=== PATIENT | female | born 1995 | race Caucasian/White ===

== ENCOUNTER 2024-03-24 08:16 | Emergency (ER) | payer MEDICAID, SELFPAY ==
[2024-03-24 09:30] VITALS: BP 164/78; PULSE 69; RESP 18; TEMP 36.7; O2SAT 100; BMI 22.6
[2024-03-24 09:34] VITALS: BMI 22.6
--- NOTE | 2024-03-24 09:34 | EXP.UTC ---
Discharge Plan Disposition Patient Disposition: Home, Self-Care Condition: Good Prescriptions Prescriptions: New prednisone 10 mg tablet 10 mg PO BID 4 Days Qty: 8 0RF amoxicillin 500 mg tablet 500 mg PO TID 10 Days Qty: 30 0RF [id number]-oedspfkci-KQ [Bromfed DM] 2-30-10 mg/5 mL Syrup 5 ml PO Q6H PRN (Reason: Cough) Qty: 240 0RF Referrals Follow up/Referrals: Provider,Referral, MD [Primary Care Provider] - See instructions Activity Restrictions/Add. Instructions Additional Instructions/Restrictions: Drink plenty of fluids. Take tylenol or ibuprofen for pain or fever. Take the medications as directed. Follow up with your regular doctor. GO TO THE ER FOR ANY WORSENING SYMPTOMS Clinical Impressions Clinical Impression: Strep throat Stand Alone Forms Stand Alone Forms: Work/School Release Instructions Patient Instructions: Strep Throat, DI for Strep Throat Print Language Print Language: Anguillan Discharge ED Provider: Orville Sprague [facility] HPI General Stated complaint: headache, swollen tonsils, sore throat Time Seen by Provider: 03/24/24 09:34 History of Present Illness Provider Complaint: She states that for the past 3 days she has had worsening sore throat. Related Data Previous Rx's ?Medication ?Instructions ?Recorded amoxicillin 500 mg tablet 500 mg PO TID 10 days #30 tabs 03/24/24 bilkqkxrvjmhjaq-xygbjpfluemzklo-AD 5 ml PO Q6H PRN Cough #240 mL 03/24/24 2 mg-30 mg-10 mg/5 mL oral syrup (Bromfed DM) prednisone 10 mg tablet 10 mg PO BID 4 days #8 tabs 03/24/24 Allergies Allergy/AdvReac Type Severity Reaction Status Date / Time No Known Allergies Allergy Verified 03/24/24 09:34 [facility] Disclaimer: The information contained in this section may have been updated after the patient was seen, as this information can be updated by other users. Social History Smoking Status: Never smoker alcohol intake: never current occupational status: employed Travel in the last 8 weeks: None ROS Obtained: Yes All systems reviewed & no additional complaints except as documented Constitutional Constitutional: Reports chills and Reports fever(s) Eyes Eyes: Denies eye discharge ENT Ears, Nose, Mouth, and Throat: Reports as per HPI Cardiovascular Cardiovascular: Denies chest pain Respiratory Respiratory: Denies chest congestion and Reports cough Gastrointestinal Gastrointestingal: Reports nausea; Denies abdominal pain, constipation, cramping, diarrhea or vomiting Musculoskeletal Musculoskeletal: Denies arthralgias Integumentary/Breasts Skin/Breast: Denies rash Neurologic Neurologic: Denies paresthesias Physical Exam General General appearance: alert and in no apparent distress Head Head exam: atraumatic, normocephalic and normal inspection Eye Eye exam: Present normal appearance, PERRL and EOMI ENT ENT exam: Present mucous membranes moist and normal external ear exam Expanded ENT Exam TM/Canal exam: Bilateral TM: erythema and bulging Nose exam: Absent sinus tenderness Mouth exam: Present normal external inspection; Absent drooling Teeth exam: Present normal inspection Throat exam: Present tonsillar erythema, tonsillomegaly and tonsillar exudate Neck Neck exam: Present normal inspection, full ROM and trachea midline; Absent tenderness, meningismus or lymphadenopathy Chest Chest inspection: Present normal inspection and symmetric chest wall rise; Absent tenderness Respiratory Respiratory exam: Present normal lung sounds bilaterally; Absent respiratory distress, wheezes, stridor or accessory muscle use Cardiovascular Cardiovascular exam: Present regular rate and normal rhythm; Absent systolic murmur or diastolic murmur Abdominal Exam Abdominal exam: Present soft and normal bowel sounds; Absent distention, tenderness, guarding, rebound or rigidity Extremities Exam Extremities exam: Present normal inspection and normal capillary refill; Absent calf tenderness Back Exam Back exam: Present normal inspection and full ROM; Absent tenderness, CVA tenderness (R) or CVA tenderness (L) Neurological Exam Neurological exam: Present alert, oriented X3 and CN II-XII intact Psychiatric Psychiatric exam: Present normal affect and normal mood Skin Skin exam: Present warm, dry, intact and normal color Medical Decision Making Medical Records Medical records reviewed: No I reviewed the patient's medical records. Chuck Inquiry Pt receiving controlled substance: No Lab Data Lab results reviewed: Yes I reviewed the patient's lab results.
[2024-03-24 10:04] LABS: Coronavirus 19, PCR Not Detected (NotDetected); Influenza A, PCR Not Detected (NotDetected); Influenza B, PCR Not Detected (NotDetected)
[2024-03-24 10:06] LABS: UTC Strep Screen (Rapid) Positive (Negative)
[2024-03-24 10:13] VITALS: BP 165/78; PULSE 69; RESP 20; TEMP 36.7; O2SAT 100
== END 2024-03-24 10:13 | disposition home or self-care (01) ==
PROVIDERS: Emergency Provider Nurse Practitioner Family
DX: J02.0 Streptococcal pharyngitis (principal); R51.9 Headache, unspecified
CPT/HCPCS: 87636; 87880; 99204; 99212; G0463

== ENCOUNTER 2024-05-17 14:45 | Emergency (ER) | payer MEDICAID, SELFPAY ==
[2024-05-17 14:47] VITALS: BP 134/87; PULSE 66; RESP 13; TEMP 36.6; O2SAT 100; BMI 23.6
--- NOTE | 2024-05-17 14:48 | ED_ITS ---
<Statement entered by Glenna Guerrero DO - 05/17/24 23:25> I was consulted by the TRELL, and we discussed the complexity of patient is very well-appearing, alert, and neurologically intact with the problems being addressed. I approved the treatment and management plan for this patient's care in the emergency department, thus performing a substantive portion of the medical decision making. Physical exam that suggest peripheral cause of vertigo. Head imaging was considered, though felt not to be appropriate at this time. Strict return precautions were given Glenna Guerrero DO Discharge Plan Disposition Patient Disposition: Home, Self-Care Condition: Good Prescriptions Prescriptions: New meclizine 25 mg tablet 25 mg PO QID PRN (Reason: dizziness) Qty: 20 0RF prednisone 50 mg tablet 50 mg PO DAILY 5 Days Qty: 5 0RF No Action prednisone 10 mg tablet 10 mg PO BID 4 Days Qty: 8 0RF amoxicillin 500 mg tablet 500 mg PO TID 10 Days Qty: 30 0RF utaxbnjmcbhdnus-ephymuhqu-XY [Bromfed DM] 2-30-10 mg/5 mL Syrup 5 ml PO Q6H PRN (Reason: Cough) Qty: 240 0RF Referrals Follow up/Referrals: Saroj Hall MD [Physician] - See instructions Provider,MD Wilber [Primary Care Provider] - See instructions Activity Restrictions/Add. Instructions Additional Instructions/Restrictions: Take the steroids continuously unless you have side effects until they are gone. You may utilize the meclizine for dizziness symptoms. I have referred you to ear nose and throat, please call in the morning to make an appointment. Return to ER for any worsening signs or symptoms as needed Clinical Impressions Clinical Impression: Benign paroxysmal positional vertigo Qualifiers: Laterality: right Qualified Code(s): H81.11 - Benign paroxysmal vertigo, right ear Stand Alone Forms Stand Alone Forms: Work/School Release Instructions Patient Instructions: Vertigo Print Language Print Language: Faroese Discharge ED Provider: Glenna Guerrero General Adult HPI General Chief complaint: Dizziness Stated complaint: disoriented, chills, weakness, faint Time Seen by Provider: 05/17/24 14:48 History of Present Illness HPI narrative: Patient presents for evaluation of dizziness. Patient states that she was having a normal day and was at work when she suddenly started feeling like she had a dull headache that then progressed to dizziness and lightheadedness. She states her dizziness persists even when her eyes are close and is worse when she turns her head to the right. Currently her headache is gone but the dizziness persists. She denied any focal neurologic deficits, chest pain shortness of breath fever chills hemoptysis hematochezia melena she did report nausea but no vomiting. She has had no recent upper respiratory tract illnesses. Related Data Previous Rx's ?Medication ?Instructions ?Recorded amoxicillin 500 mg tablet 500 mg PO TID 10 days #30 tabs 03/24/24 jvoktoiylgrzqtx-oumffuanuwutuhm-OX 5 ml PO Q6H PRN Cough #240 mL 03/24/24 2 mg-30 mg-10 mg/5 mL oral syrup (Bromfed DM) prednisone 10 mg tablet 10 mg PO BID 4 days #8 tabs 03/24/24 meclizine 25 mg tablet 25 mg PO QID PRN dizziness #20 tabs 05/17/24 prednisone 50 mg tablet 50 mg PO DAILY 5 days #5 tabs 05/17/24 Allergies Allergy/AdvReac Type Severity Reaction Status Date / Time No Known Allergies Allergy Verified 03/24/24 09:34 [facility] Disclaimer: The information contained in this section may have been updated after the patient was seen, as this information can be updated by other users. Social History (Updated 03/24/24 @ 10:04 by Orville Sprague APRN) Smoking Status: Current every day smoker alcohol intake: never current occupational status: employed Travel in the last 8 weeks: None ROS Obtained: Yes Systems reviewed as appropriate & no additional complaints except as documented Physical Exam General General appearance: alert and in no apparent distress Eye Eye exam: Present PERRL ENT ENT exam: Present normal exam, normal oropharynx, mucous membranes moist and TM's normal bilaterally Respiratory Respiratory exam: Present normal lung sounds bilaterally Cardiovascular Cardiovascular exam: Present regular rate Neurological Exam Neurological exam: Present alert, oriented X3, CN II-XII intact and normal gait; Absent motor sensory deficit Medical Decision Making Medical Records Medical records reviewed: Yes I reviewed the patient's medical records. Screening: Per USPSTF and CDC recommendations, given the prevalence of disease in our region, it is our hospital?s policy to screen for HIV and viral Hepatitis for all patients aged 18 and over and those with ongoing risk factors. Chuck Inquiry Pt receiving controlled substance: No Vital Signs: 05/17/24 14:47 05/17/24 15:00 05/17/24 15:31 Temperature 97.9 F Temperature Source Oral Pulse Rate 73 69 Pulse Rate [Left Radial] 66 Respiratory Rate 13 12 16 Blood Pressure 127/82 111/74 Blood Pressure [Right Arm] 134/87 Blood Pressure Mean Blood Pressure Mean [Right Arm] 102 02 Sat by Pulse Oximetry 100 100 100 Oxygen Delivery Method Room Air Room Air 05/17/24 16:00 05/17/24 16:18 Temperature 97.9 F Temperature Source Pulse Rate 69 Pulse Rate [Left Radial] Respiratory Rate 16 Blood Pressure 116/77 116/77 Blood Pressure [Right Arm] Blood Pressure Mean 89 Blood Pressure Mean [Right Arm] 02 Sat by Pulse Oximetry 100 Oxygen Delivery Method Room Air Lab Data Lab results reviewed: Yes I reviewed the patient's lab results. Lab Results 05/17/24 15:00: WBC 7.6, RBC 4.52, Hgb 13.5, Hct 38.9, MCV 86.2, MCH 29.9, MCHC 34.7, RDW 13.8, Plt Count 346, MPV 9.4, Neut % (Auto) 57.6, Lymph % (Auto) 34.9, Dodge % (Auto) 4.8, Eos % (Auto) 1.9, Baso % (Auto) 0.7, Neut # (Auto) 4.4, Lymph # (Auto) 2.7, Dodge # (Auto) 0.4, Eos # (Auto) 0.2, Baso # (Auto) 0.1, Sodium 135 L, Potassium 5.0, Chloride 105, Carbon Dioxide 24, Anion Gap 11.0, BUN 19 H, Creatinine 0.80, Estimated Creat Clear 92, Estimated GFR 84, Est GFR ( Amer) 102, Glucose 104 H, Calcium 9.2, Total Bilirubin 1.3, AST 55 H, ALT 16, Alkaline Phosphatase 55, Total Protein 8.2, Albumin 5.0, Globulin 3.2, Albumin/Globulin Ratio 1.6, Serum HCG, Qual Negative 05/17/24 15:00 05/17/24 15:00 Orders (Tests/Meds): ED MEDICATIONS Discontinued Medications Generic Name Dose Route Start Last Admin Trade Name Freq PRN Reason Stop Dose Admin Acetaminophen 1,000 mg 05/17/24 14:56 05/17/24 15:05 Acetaminophen 500mg Tab PO 05/17/24 14:57 1,000 mg ONCE ONE Administration Sodium Chloride 1,000 mls @ 999 mls/hr 05/17/24 14:56 05/17/24 15:06 Sod Chlor 0.9% 1000ml Bag IV 05/17/24 15:56 999 mls/hr .Q1H1M ONE Administration Meclizine HCl 25 mg 05/17/24 15:05 05/17/24 15:11 Meclizine 25mg Tablet PO 05/17/24 15:06 25 mg ONCE ONE Administration Ondansetron HCl 4 mg 05/17/24 14:56 05/17/24 15:06 Ondansetron 4mg/2ml Vial IV 05/17/24 14:57 4 mg ONCE ONE Administration Prednisone 60 mg 05/17/24 15:05 05/17/24 15:11 Prednisone 20mg Tab 1 mg/kg (60 mg) 05/17/24 15:06 60 mg PO Administration ONCE ONE ORDERS Category Date Time Status CBC w/Auto Diff [Complete Blood Count Auto Diff] Stat Lab 05/17/24 15:00 Completed CMP [Comprehensive Metabolic Panel] Stat Lab 05/17/24 15:00 Completed HCG Qualitative, Serum Stat Lab 05/17/24 15:00 Completed HIV (1&2) Antibody Rapid Stat Lab 05/17/24 15:22 Received Hep C Ab with Reflex to RNA Stat Lab 05/17/24 15:22 Received Medical Decision Narrative: In summary patient is a 28-year-old female who presents to the emergency department for evaluation of dizziness. Patient is hemodynamically stable upon arrival, afebrile. Physical exam is remarkable for patient's subjective dizziness even lying still. It is worse with rotation of her head to the right. She has no nuchal rigidity she has no focal neurologic deficits Glascow coma score is 15 and examination of the HEENT shows she has normal bilateral tympanic membranes and oropharynx. She has no cervical lymphadenopathy. NIH stroke score 0.. Differential diagnosis includes BPPV versus hypoglycemia versus electrolyte disturbance etc. Initial workup will be conducted with hematologic labs twelve-lead EKG urinalysis.. Initial interventions include meclizine Tylenol Toradol. Initial workup reviewed by me that her hematologic labs are nonactionable urinalysis is bland.. Upon repeat evaluation patient had significant reduction in her symptoms after initial intervention. Given this patient is appropriate for discharge with prescription for's steroids for 5 days, meclizine and referral to ENT for further evaluation of BPPV Critical Care Critical Care Time Critical Care Time: No
--- NOTE | 2024-05-17 14:53 | ECG_ITS ---
APPROVED REPORT Exam: Resting ECG HR:70 bpm ECG Measurements Heart Rate 70 AXES FL 124 P 28 QRSd 85 QRS 68 QT 355 T 35 QTc 376 Conclusion SINUS RHYTHM NORMAL ECG UNCONFIRMED REPORT Electronically signed by : TATIANA KELLEY, 05/18/2024 00:30:35
[2024-05-17 15:00] VITALS: BP 127/82; PULSE 73; RESP 12; O2SAT 100
[2024-05-17] MEDS: ACETAMINOPHEN 500MG TAB 1000 MG PO (15:05)
[2024-05-17] MEDS: 0.9 % SODIUM CHLORIDE 1000ML 1,000 ML 999 ML IV (15:06)
[2024-05-17] MEDS: ONDANSETRON 4MG/2ML VIAL 4 MG IV (15:06)
[2024-05-17] MEDS: predniSONE 20MG TAB 60 MG PO (15:11)
[2024-05-17] MEDS: MECLIZINE 25MG TABLET 25 MG PO (15:11)
[2024-05-17 15:18] LABS: Basophils # 0.1 K/mm3 (0-0.2); Basophils % 0.7 % (0.1-2.0); Eosinophils # 0.2 K/mm3 (0.0-0.4); Eosinophils % 1.9 % (0.1-12.0); Hematocrit 38.9 % (37.0-47.0); Hemoglobin 13.5 g/dL (12.2-16.2); Lymphocytes # 2.7 K/mm3 (0.7-4.5); Lymphocytes % 34.9 % (10-50); Mean Corpuscular HGB Conc 34.7 g/dL (31.8-35.4); Mean Corpuscular Hemoglobin 29.9 pg (27.0-31.2); Mean Corpuscular Volume 86.2 fl (81-99); Mean Platelet Volume 9.4 fl (7.4-10.4); Monocytes # 0.4 K/mm3 (0.1-1.0); Monocytes % 4.8 % (1.7-9.3); Neutrophils # 4.4 K/mm3 (1.8-7.8); Neutrophils % 57.6 % (37.0-80.0); Platelet Count 346 K/mm3 (142-424); Red Blood Count 4.52 M/mm3 (4.20-5.40); Red Cell Distribution Width 13.8 % (11.5-17.5); White Blood Count 7.6 K/mm3 (4.8-10.8)
[2024-05-17 15:19] LABS: Chloride 105 mmol/L (98-107)
[2024-05-17 15:20] LABS: Sodium 135 mmol/L (136-145)
[2024-05-17 15:22] LABS: Alanine Aminotransferase 16 U/L (12-78); Aspartate Amino Transferase 55 U/L (14-36); Blood Urea Nitrogen 19 mg/dl (7-17); Creatinine Clearance Estimated 92 mL/min (50-200); Estimated Glomerular Filt Rate 84 ml/min (>60); GFR (African American) 102 ML/MIN (>60)
[2024-05-17 15:23] LABS: Albumin/Globulin Ratio 1.6 (1.1-1.8); Bilirubin,Total 1.3 mg/dl (0.2-1.3); Calcium 9.2 mg/dl (8.4-10.2); Carbon Dioxide 24 mmol/L (22.0-30.0); Globulin 3.2 g/dL (1.3-3.2); Glucose 104 mg/dl (74-100); Total Protein,Serum 8.2 g/dl (6.3-8.2)
[2024-05-17 15:31] VITALS: BP 111/74; PULSE 69; RESP 16; O2SAT 100
[2024-05-17 15:49] LABS: HCG Qualitative, Serum Negative (Negative)
[2024-05-17 16:00] VITALS: BP 116/77; O2SAT 100
[2024-05-17 16:18] VITALS: BP 116/77; PULSE 69; RESP 16; TEMP 36.6; O2SAT 100
[2024-05-17 16:48] LABS: Alkaline Phosphatase 55 U/L (38-126)
[2024-05-17 18:14] LABS: HIV (1&2) Antibody Rapid NONREACTIVE (NONREACTIVE)
--- NOTE | 2024-05-19 08:27 | PC.NURSE ---
pt came to ER this morning asking for another work note for 05/18/24. States she was told to take tomorrow off which would put her return to work on 05/19/24, however her work excuse states return to work on 05/18/[address] Nath if that would be ok to adjust work excuse, he states that will be ok. Work note adjusted, printed, and given to pt.
[2024-05-19 08:28] LABS: HCV Ab Non Reactive (Non Reactive)
== END 2024-05-17 16:19 | disposition home or self-care (01) ==
PROVIDERS: Physician Assistant; Emergency Provider Emergency Medicine
DX: R53.1 Weakness; R51.9 Headache, unspecified; H81.10 Benign paroxysmal vertigo, unspecified ear
CPT/HCPCS: 80053; 84703; 85025; 86803; 87389; 93005; 96361; 96374; 99283; J2405; J7030

== ENCOUNTER 2025-05-04 08:57 | Emergency (ER) | payer BC, SELFPAY ==
--- OUTSIDE RECORDS SUMMARY | 2023-05-04 10:16 | XMS_ITS | Continuity of Care Document ---
Author Organization [facility] Address [address] [place] [address] Phone Care Team Providers Care Resistance Brazer Name Role Phone Denice Brown MD Unavailable Unavaila ble Allergies, Adverse Reactions, Alerts Substance Reaction Status Criticality No Known Allergies Active No Inform ation Medications Medication Instructions Dosage Effective Dates (start - stop) Status Comments Zoloft 100 mg tablet take 1 tablet by or al route every day 100 MG - Active iron 325 mg (65 mg iron) tablet take 1 tablet by oral route 2 times every day 325 MG - Active Pepcid 40 mg tablet take 1 tablet by ora l route every day at bedtime 40 MG - Active + DHA 28 mg iron-800 mcg-200 mg oral pack take 1 tablet once daily - Active Colace 100 mg capsule take 1 capsule by oral route every day at bedtime as needed 100 MG - Active ondansetron HCl 4 mg tablet take 2 tablet by oral route 2 times every day 8 MG - Active Advance Directives Directive Yes / No Effective Date File Name No Information Encounters Encounter Description Practice Location Reason(s) For Visit Diagnoses Date Provider [facility], [address], [place], [facility], [place] tel:[phone] [address]KRAIG No Information 3 Stephanie Galdamez. [address], [place], [facility], . tel:[phone] [facility], [address] [place], [address], [place] tel:[phone] [facility] No Information 2 3 Stephanie Denice. [address], [place], [facility], [place]. tel:[phone] [place] [address], [address] [place] [address], [facility], [place] tel:[phone] [facility] routine (chief complaint) 38 weeks gestation of pregnancyDrug use complicating pregnancySupervision of high risk , unspecified, third trimester Sep-2 3 Stephanie Denice. [address], [place], [facility], [place]. tel:[phone] [place] [address], [address] [place] [address], [facility], tel:[phone] [facility] routine (chief complaint) 37 weeks gestation of pregnancyDrug use complicating pregnancySupervision of high risk , unspecified, third trimester Sep-2 3 Stephanie Denice. [address], [place], [facility], [place]. tel:[phone] [place] [address], [address] [place] [address], [facility], [place] tel:[phone] [facility] routine (chief complaint) 37 weeks gestation of pregnancySupervision of high risk , unspecified, third trimesterOther cholelithiasis without obstruction Sep-1 3 Stephanie Denice. [address], [place], [facility], [place]. tel:[phone] [place] [address], [address] [place] [address], [facility], [place] tel:[phone] [facility] routine (chief complaint) 36 weeks gestation of pregnancySupervision of high risk , unspecified, third trimesterDrug use complicating Sep-0 3 Stephanie Denice. [address], [place], [facility], [place]. tel:[phone] [place] [address], [address] [place] [address], [address], tel:[phone] [facility] routine (chief complaint) AmenorrheaEncounter for screening for depressionOther cholelithiasis without obstructionDrug use complicating [id number] weeks gestation of pregnancySupervision of high risk , unspecified, third trimester 3 Stephanie Galdamez. [address], [address], [place]. tel:[phone] Family History Family Member Type Diagnosis Age At Onset No Information Payers Payer name Insurance type Covered constitution party ID Authoriza tion(s) No Information Social History Type Description Quantity Date Captured Comments Alcohol Use Details Unknown Caffeine Use Details Unknown Tobacco Use Status No Information Smoking Status No Information Sex Female Yes - Patient is cur rently Sexual Orientation Straight or heterosexual Mar Gender Identity Female Chief Complaint And Reason For Visit No Information Plan Of Treatment Date Type Action Status Goal Influenza vaccine. Due on due Goal Unhealthy drug use screening . Due on due Goal CMP. Due on due Goal HIV screen. Due on due Goal CBC. Due on due Goal PAP. Due on due Goal TSH. Due on due Goal Tobacco Use Screening. Due o n due Goal Vitamin D. Due on due Goal Follow up Plan f or abnormal BMI (Less than 18.5, greater than 25). Due on due Goal Generalized Anxi ety Disorder - 7 (SELAM-7). Due on due Goal Depression screening. Due on due Goal Obtain Height, Weight, and B GA. Due on due Goal Hepatitis C Screening. Due o n due Goal Diabetes screening. Due on S due Goal Drug Abuse Screening Test (D AST-10). Due on due Goal Tobacco Use Cessation Counse ling. Due on due Goal Vitamin B12. Due on due Goal Diabetes screening. Due on S due Goal Vitamin D. Due on due Goal Obtain Height, Weight, and B GA. Due on due Goal Vitamin B12. Due on due Goal CMP. Due on due Goal Influenza vaccine. Due on due Goal Hepatitis C Screening. Due o n due Goal HIV screen. Due on due Goal Unhealthy drug use screening . Due on due Goal Drug Abuse Screening Test (D AST-10). Due on due Goal Follow up Plan f or abnormal BMI (Less than 18.5, greater than 25). Due on due Goal CBC. Due on due Goal Generalized Anxi ety Disorder - 7 (SELAM-7). Due on due Goal Tobacco Use Screening. Due o n due Goal Tobacco Use Cessation Counse ling. Due on due Goal Depression screening. Due on due Goal TSH. Due on due Goal PAP. Due on due Goal Vitamin B12. Due on due Goal Follow up Plan f or abnormal BMI (Less than 18.5, greater than 25). Due on due Goal Depression screening. Due on due Goal Vitamin D. Due on due Goal Unhealthy drug use screening . Due on due Goal Tobacco Use Screening. Due o n due Goal Tobacco Use Cessation Counse ling. Due on due Goal Influenza vaccine. Due on Se due Goal Diabetes screening. Due on S due Goal Hepatitis C Screening. Due o n due Goal HIV screen. Due on due Goal Drug Abuse Screening Test (D AST-10). Due on due Goal CBC. Due on due Goal Obtain Height, Weight, and B GA. Due on due Goal Generalized Anxi ety Disorder - 7 (SELAM-7). Due on due Goal CMP. Due on due Goal TSH. Due on due Goal PAP. Due on due Goal CMP. Due on due Goal PAP. Due on due Goal Tobacco Use Screening. Due o n due Goal Vitamin B12. Due on 023 due Goal Generalized Anxi ety Disorder - 7 (SELAM-7). Due on due Goal CBC. Due on due Goal Vitamin D. Due on due Goal Tobacco Use Cessation Counspeggy maldonado. Due on due Goal Obtain Height, Weight, and B GA. Due on due Goal Hepatitis C Screening. Due o n due Goal Follow up Plan f or abnormal BMI (Less than 18.5, greater than 25). Due on due Goal Drug Abuse Screening Test (D AST-10). Due on due Goal HIV screen. Due on due Goal TSH. Due on due Goal Influenza vaccine. Due on due Goal Diabetes screening. Due on S due Goal Unhealthy drug use screening . Due on due Goal Depression screening. Due on due Goal Vitamin B12. Due on due Goal HIV screen. Due on due Goal Tobacco Use Screening. Due o n due Goal Tobacco Use Cessation Counspeggy maldonado. Due on due Goal Vitamin D. Due on due Goal CBC. Due on due Goal Generalized Anxi ety Disorder - 7 (SELAM-7). Due on due Goal Diabetes screening. Due on A due Goal Unhealthy drug use screening . Due on due Goal Depression screening. Due on due Goal Obtain Height, Weight, and B GA. Due on due Goal Follow up Plan f or abnormal BMI (Less than 18.5, greater than 25). Due on due Goal PAP. Due on due Goal Drug Abuse Screening Test (D AST-10). Due on due Goal CMP. Due on due Goal Hepatitis C Screening. Due o n due Goal TSH. Due on due Goal Influenza vaccine. Due on due Referral Ordered: OB US, LIMITED, FETUS(S) ordered History Of Present Illness Encounter Date Complaint History Of Prese nt Illness routine pt states no is sues today. denies leaking of fluid or bleeding, positive movements routine pt states no is sues today. denies leaking of fluid or bleeding, positive movements routine pt states no is sues today. denies leaking of fluid or bleeding, positive movements routine pt states posit ericka movement. denies LOF or vaginal bleeding. routine pt previously s michelle at [facility] in [place], [place], states she is currently 33 weeks 4 days. c/o vomiting this morning due to gallstones. denies leaking of fluid or bleeding, positive movementspt notes occasional marijuana use while Instructions Date Instruction Additional Infor mation No Information Assessments Type Assessment Date No Information
[2025-05-04] VITALS (7 sets, daily range): BP systolic 103–146; BP diastolic 64–104; PULSE 64–93; RESP 16; TEMP 36.7–36.8; O2SAT 99–100; BMI 22.6
--- NOTE | 2025-05-04 09:06 | PC.NURSE ---
DR DUKE AT BEDSIDE
--- OUTSIDE RECORDS SUMMARY | 2025-05-04 09:07 | XMS_ITS | Clinical Summary ---
Author Organization [employer] ([place], [place], [place], [place]) Address [address] [place] [address] Care Team Providers Care Emergency Management System Director Name Role Phone Unavailable Primary Care Provider Unavailabl e Allergies No known active allergies Medications No known medications Social History Tobacco Use Types Packs/Day Years Used Date Smoking Tobacco: Never Smokeless Tobacco: Never Tobacco Cessation:Counseling Given: Not Answered Alcohol Use Standard Drinks/Week Comments Not Currently 0 (1 standard drink = 0.6 oz pur e alcohol) Food Insecurity Answer Date Recorded Food run out past 12 months Not on file 08/02 Food did not last past 12 months Not on file 08/12/2023 Employment Answer Date Recorded Help finding and keeping a job Not on file 0 08/12/2023 Family and Community Support Answer Gaurav e Recorded Help with Day to Day Activities Not on file 08/12/2023 Feeling Lonely or Isolated Not on file 08/12 Educational Attainment Answer Date Junaid rded Speak language other than Estonian at home Not on file 08/12/2023 Want help with school or training Not on file 08/12/2023 Substance Use Answer Date Recorded Used prescription meds for non-medical reasons N ot on file 08/12/2023 Used illegal drugs past 12 months Not on file 08/12/2023 Comments No Sex and Gender Information Value Date Recorded Sex Assigned at Not on file Legal Sex Female 7:15 PM CDT Gender Identity Not on file Sexual Orientation Not on file Last Filed Vital Signs Vital Sign Reading Time Taken Comments Blood Pressure 118/79 03/20/2023 12:06 AM EDT Pulse 74 03/20/2023 12:06 AM EDT Temperature 36.6 C (97.8 F) 03/20/2023 12:06 AM EDT Respiratory Rate 18 03/20/2023 12:06 AM EDT Oxygen Saturation 100% 03/20/2023 12:06 AM EDT Inhaled Oxygen Concentration - - Weight 59.9 kg (132 lb) 03/19/2023 9:59 PM EDT Height 154.9 cm (5' 1 ) 03/19/2023 9:59 PM EDT Body Mass Index 24.94 03/19/2023 9:59 PM EDT Plan of Treatment Health Maintenance Due Date Last Done Comments Depression Screening (12+) 2005 HIV Screening 2008 Hepatitis C Screening 10/16/2011 DTAP/TDAP/TD VACCINES (1 - Tdap) 2012 Pap Smear 2014 Tobacco Cessation Counseling and Screening (12+) 03/19/2024 03/19/2023 COVID-19 VACCINE (1 - 2023-2 5 season) 2025 Influenza Vaccine (#1) 2025 Pneumococcal Vaccine: 0-49 Years Aged Out No longer eligible based on patient's age to complete this topic Insurance MEDICAID PEND [facility]
--- OUTSIDE RECORDS SUMMARY | 2025-05-04 09:07 | XMS_ITS | Referral Summary ---
Author Organization [employer] ([place], [place], [place], [place]) Address [address] [place] [address] Care Team Providers Care Lead Relay Tester Name Role Phone Unavailable Primary Care Provider [...] Date Junaid rded Speak language other than Swedish at home Not on file 08/12/2023 Want [...] 03/19/2023 9:59 PM EDT Plan of Treatment Not on file Insurance MEDICAID PEND [facility] [place]
--- NOTE | 2025-05-04 09:08 | US_ITS ---
FINAL REPORT CLINICAL HISTORY: RUQ Abdominal pain COMPARISON: None FINDINGS: Sonographic images of the right upper quadrant were obtained. The pancreas is obscured.The liver has an unremarkable appearance. Multiple gallstones are present in the gallbladder. There is no evidence of biliary ductal dilatation.The common duct measures 4mm. Limited images of the right kidney are unremarkable. IMPRESSION: Gallstones. Reviewed, Interpreted and Dictated by Jacoby Stephens MD Transcribed by Joellen Montoya Authenticated and . [facility]
--- NOTE | 2025-05-04 09:11 | ECG_ITS ---
APPROVED REPORT Exam: Resting ECG HR:71 bpm ECG Measurements Heart Rate 71 AXES DC 105 P 14 QRSd 86 QRS 84 QT 348 T 13 QTc 371 Conclusion Normal sinus rhythm Normal axis Normal intervals No STEMI Isolated T wave inversion in lead III Electronically signed by : Nathan Nobles, 05/04/2025 16:09:17
--- NOTE | 2025-05-04 09:12 | HMH.EDGENADL ---
Discharge Plan Disposition Patient Disposition: Home, Self-Care Condition: Good Prescriptions Prescriptions: New naproxen 500 mg tablet 500 mg PO Q12H Qty: 60 0RF oxycodone 5 mg tablet 5 mg PO Q8H PRN (Reason: pain) Qty: 12 0RF ondansetron 4 mg tablet,disintegrating 4 mg PO QID PRN (Reason: nausea and vomiting) Qty: 20 0RF No Action azelastine 137 mcg (0.1 %) spray,non-aerosol 2 spray intranasal BID Qty: 30 2RF Rx Instructions: administer into each nostril meclizine 25 mg tablet 25 mg PO QID PRN (Reason: dizziness) Qty: 20 0RF Referrals Follow up/Referrals: Provider,Referral, MD [Primary Care Provider, Medical] - See instructions Activity Restrictions/Add. Instructions Additional Instructions/Restrictions: I want you to take naproxen for pain and Zofran for nausea and vomiting. If you have breakthrough pain you can take oxycodone every 8 hours as needed. If you develop inability to tolerate oral intake, intractable nausea and vomiting, or pain that is refractory to naproxen and oxycodone I want you to return to the emergency department immediately. Otherwise, Dr. Wong will see you in the clinic on Wednesday and plan to get your gallbladder out on Clinical Impressions Clinical Impression: Symptomatic cholelithiasis Instructions Patient Instructions: DI for Acute Abdominal Pain Print Language Print Language: Bengali Discharge ED Provider: Nathan Nobles Adult HPI General Chief complaint: Abdominal Pain Stated complaint: Pain-Gallbladder Time Seen by Provider: 05/04/25 09:00 History of Present Illness HPI narrative: This is a 29-year-old female patient, with no significant past medical history or daily medications, who is presenting to the emergency department today for evaluation of 4 days of right upper quadrant abdominal pain. Patient states that she was told in the past that she had a gallstones while she was but a surgical procedure was deferred secondary to . She states that she has not had pain in quite some time but over the last 4 days this pain is returned in her right upper quadrant and is radiating into her back in the region of her shoulder blades. She has had nausea and vomiting which has limited her ability to eat for the last several days and due to this she has also had decreased stool output. She is not having any urinary symptoms. Last menstrual period was 3 weeks ago. Related Data Previous Rx's ?Medication ?Instructions ?Recorded meclizine 25 mg tablet 25 mg PO QID PRN dizziness #20 tabs 05/17/24 azelastine 137 mcg (0.1 %) nasal 2 spray intranasal BID #30 mL 05/29/24 spray naproxen 500 mg tablet 500 mg PO Q12H #60 tabs 05/04/25 ondansetron 4 mg disintegrating 4 mg PO QID PRN nausea and 05/04/25 tablet vomiting #20 tabs oxycodone 5 mg tablet 5 mg PO Q8H PRN pain #12 tabs 05/04/25 Allergies Allergy/AdvReac Type Severity Reaction Status Date / Time No Known Allergies Allergy Verified 05/29/24 09:10 [facility] Disclaimer: The information contained in this section may have been updated after the patient was seen, as this information can be updated by other users. Medical History (Updated 05/04/25 @ 12:51 by Nathan Nobles DO) Right chronic serous otitis media Social History (Updated 05/29/24 @ 09:17 by DUANE Morales) Smoking Status: Current every day smoker tobacco type: e-cigarettes alcohol intake: never current occupational status: employed Travel in the last 8 weeks?: None Have you lived/traveled outside US in past 30 days?: No Contact w/someone who lives/traveled outside US past 30 days?: No Exposure to someone with infectious disease in past 14 days?: No Do you have a fever (greater than 100.4 F or 38 C)?: No Have you tested positive for COVID-19?: No Exposed to someone with COVID-19 in past 14 days?: No Do you have a sore throat?: No Do you have a cough?: No Do you have any weakness?: No Do you have any diarrhea?: No Are you experiencing any unusual bleeding?: No Do you have any muscle aches/pain?: No Do you have any abdominal pain?: No Are you experiencing loss of taste or smell?: No ROS Obtained: Yes Systems reviewed as appropriate & no additional complaints except as documented Physical Exam General General appearance: other (See MDM) Respiratory Respiratory exam: Present other (See MDM) Cardiovascular Cardiovascular exam: Present other (See MDM) Neurological Exam Neurological exam: Present other (See MDM) Medical Decision Making Medical Records Medical records reviewed: Yes I reviewed the patient's medical records. Screening: Per USPSTF and CDC recommendations, given the prevalence of disease in our region, it is our hospital?s policy to screen for HIV and viral Hepatitis for all patients aged 18 and over and those with ongoing risk factors. Chuck Inquiry Pt receiving controlled substance: No Chuck was queried for this patient: No Vital Signs: 05/04/25 09:04 05/04/25 09:10 05/04/25 09:30 Temperature 98.2 F Temperature Source Oral Pulse Rate 92 H 66 Pulse Rate [Apical] 93 H Respiratory Rate 16 Blood Pressure 146/102 H 117/84 Blood Pressure [Right Arm] 146/104 H Blood Pressure Mean [Right Arm] 118 Blood Pressure Source [Right Arm] Automatic Cuff Blood Pressure Position [Right Arm] Sitting 02 Sat by Pulse Oximetry 99 100 100 Oxygen Delivery Method Room Air Room Air Room Air 05/04/25 10:00 05/04/25 11:30 05/04/25 12:00 Temperature Temperature Source Pulse Rate 64 66 64 Pulse Rate [Apical] Respiratory Rate Blood Pressure 108/72 L 103/64 L 107/87 L Blood Pressure [Right Arm] Blood Pressure Mean [Right Arm] Blood Pressure Source [Right Arm] Blood Pressure Position [Right Arm] 02 Sat by Pulse Oximetry 99 100 100 Oxygen Delivery Method Lab Data Lab Results 05/04/25 09:00: Urine Color Yellow, Urine Appearance Clear, Urine pH 6.0, Ur Specific Twining 1.020, Urine Protein Negative, Urine Glucose (UA) Negative, Urine Ketones Negative, Urine Blood Negative, Urine Nitrate Negative, Urine Bilirubin Negative, Urine Urobilinogen 0.2, Ur Leukocyte Esterase Negative, Urine RBC None, Urine WBC Occasional, Ur Squamous Epith Cells Occasional, Urine Bacteria Trace 05/04/25 09:10: WBC 9.2, RBC 4.88, Hgb 14.9, Hct 42.3, MCV 86.7, MCH 30.5, MCHC 35.2, RDW 13.6, Plt Count 343, MPV 10.2, Neut % (Auto) 59.5, Lymph % (Auto) 33.0, [place] % (Auto) 6.3, Eos % (Auto) 0.8, Baso % (Auto) 0.2, Neut # (Auto) 5.5, Lymph # (Auto) 3.0, [place] # (Auto) 0.6, Eos # (Auto) 0.1, Baso # (Auto) 0.0, Sodium 137, Potassium 3.6, Chloride 101, Carbon Dioxide 26, Anion Gap 13.6, BUN 12, Creatinine 0.90, Estimated Creat Clear 78, Estimated GFR 73, Est GFR ( Amer) 88, Glucose 99, Lactate 0.6 L, Calcium 9.8, Total Bilirubin 1.4 H, AST 47 H, ALT 20, Alkaline Phosphatase 59, Total Protein 7.9, Albumin 4.7, Globulin 3.2, Albumin/Globulin Ratio 1.5, Lipase 120, Serum HCG, Qual Negative 05/04/25 09:10 05/04/25 09:10 Orders (Tests/Meds): ED MEDICATIONS Discontinued Medications Generic Name Dose Route Start Last Admin Trade Name Freq PRN Reason Stop Dose Admin Morphine Sulfate 4 mg 05/04/25 09:10 05/04/25 09:32 Morphine 4mg/Ml Syringe IV 05/04/25 09:11 4 mg ONCE ONE Administration Ondansetron HCl 4 mg 05/04/25 09:10 05/04/25 09:32 Ondansetron 4mg/2ml Vial IV 05/04/25 09:11 4 mg ONCE ONE Administration ORDERS Category Date Time Status US gallbladder Stat Exams 05/04/25 09:08 Completed CBC w/Auto Diff [Complete Blood Count Auto Diff] Stat Lab 05/04/25 09:10 Completed CMP [Comprehensive Metabolic Panel] Stat Lab 05/04/25 09:10 Completed HCG Qualitative, Serum Stat Lab 05/04/25 09:10 Completed Lactic Acid Stat Lab 05/04/25 09:10 Completed Lipase Stat Lab 05/04/25 09:10 Completed Urinalysis and Microscopic Stat Lab 05/04/25 09:00 Completed ECG Data Tracing #1: I reviewed this ECG and interpreted as documented below: EKG personally turbid by me demonstrates normal sinus rhythm with a rate of 71 bpm, normal axis, no IN prolongation, narrow QRS, no QTc prolongation. No ST elevation or depression. No overt signs of ischemia or arrhythmia Medical Decision Narrative: In summary, this is a 29-year-old female patient who is presenting to the emergency department today for evaluation of right upper quadrant Joey pain radiating into the back. Patient's only comorbidities include a past medical history of known cholelithiasis. On initial evaluation of the patient they were resting comfortably in no acute distress and nontoxic in appearance. They are hemodynamically stable, saturating well room air, and are neurologically intact. On physical examination of the patient she has right upper quadrant abdominal tenderness palpation as well as epigastric abdominal tenderness palpation. Remainder of her abdomen is nontender to palpation. She has no evidence of peritonitis. Heart and lungs are clear to auscultation bilaterally. No lower extremity erythema or edema. Differential diagnosis includes cholecystitis, choledocholithiasis, cholelithiasis, pancreatitis, urinary tract infection, , among others. Workup was initiated with hematologic labs as well as a right upper quadrant ultrasound. Labs personally turbid by me demonstrate no evidence of leukocytosis. Bilirubin is mildly elevated at 1.4, AST is mildly elevated at 47. ALT is normal. Alk phos normal. Right upper quadrant ultrasound as interpreted by radiology demonstrates cholelithiasis without overt evidence of choledocholithiasis or cholecystitis per Given that the patient is having such significant pain and this is impacting her ability to eat I decided to discuss this case directly with Dr. Wong of the general surgery service. He stated that he does not currently see an indication to take her gallbladder out emergently. He would like to follow the patient up in clinic on Wednesday and plan to perform a cholecystectomy on . He also stated that if the patient was unable to tolerate oral intake or if her pain was too significant to control that he felt it would be reasonable to admit her for observation and if she developed an emergent indication for gallbladder removal they would be willing to do so this weekend. the patient's pain has been controlled here in the emergency department with 4 mg of morphine and 4 mg of Zofran. I have offered her admission for observation and I have also offered for her to follow-up in the clinic on Wednesday as Dr. Wong mentioned over the phone. She tells me that she has a small child at home and she would like to go home and return to the emergency department if she develops inability to tolerate oral intake or if she develops intractable pain. We will treat her with a course of NSAIDs at home as well as Zofran for nausea. We will also prescribe oxycodone to the patient to take in the event that she has breakthrough pain. Patient acknowledges understanding of return precautions. At this time all questions have been answered and all parties are agreeable with the decision to discharge home Critical Care Critical Care Time Critical Care Time: No
[2025-05-04 09:20] LABS: Microscopic, Urine URINE MICROSCOPIC (MICROSCOPIC)
[2025-05-04 09:21] LABS: Hematocrit 42.3 % (37.0-47.0); Hemoglobin 14.9 g/dL (12.2-16.2); Immature Granulocytes % 0.2 %; Mean Corpuscular HGB Conc 35.2 g/dL (31.8-35.4); Mean Corpuscular Hemoglobin 30.5 pg (27.0-31.2); Mean Corpuscular Volume 86.7 fl (81-99); Nucleated Red Blood Cells % 0 %; Platelet Count 343 K/mm3 (142-424); Red Blood Count 4.88 M/mm3 (4.20-5.40); Red Cell Distribution Width-SD 42.5 fL; White Blood Count 9.2 K/mm3 (4.8-10.8)
[2025-05-04 09:22] LABS: Bilirubin,Urine Negative (Negative); Color,Urine YELLOW (Yellow); Glucose,Urine (UA) Negative (Negative); Ketones,Urine Negative (Negative); Leukocyte Esterase,Urine Negative (Negative); PH,Urine 6.0 (5.0-8.5); Protein,Urine Negative (Negative); Specific Gravity, Urine 1.020 (1.005-1.030); Urobilinogen,Urine 0.2 EU/dl (0.2)
[2025-05-04] MEDS: ONDANSETRON 4MG/2ML VIAL 4 MG IV (09:32)
[2025-05-04] MEDS: MORPHINE 4MG/ML SYRINGE 4 MG IV (09:32)
[2025-05-04 09:45] LABS: HCG Qualitative, Serum Negative (Negative)
[2025-05-04 09:48] LABS: Albumin Level 4.7 g/dl (3.5-5.0); Chloride 101 mmol/L (98-107); Potassium 3.6 mmoL/L (3.5-5.1); Sodium 137 mmol/L (136-145)
[2025-05-04 09:50] LABS: Blood Urea Nitrogen 12 mg/dl (7-17); Creatinine Clearance Estimated 78 mL/min (50-200); Creatinine,Serum 0.90 mg/dl (0.52-1.04); Estimated Glomerular Filt Rate 73 ml/min (>60); GFR (African American) 88 ML/MIN (>60); Lipase 120 U/L (23-300)
[2025-05-04 09:51] LABS: Alanine Aminotransferase 20 U/L (12-78); Albumin/Globulin Ratio 1.5 (1.1-1.8); Alkaline Phosphatase 59 U/L (38-126); Anion Gap 13.6 mEq/L (5-15); Aspartate Amino Transferase 47 U/L (14-36); Bilirubin,Total 1.4 mg/dl (0.2-1.3); Calcium 9.8 mg/dl (8.4-10.2); Carbon Dioxide 26 mmol/L (22.0-30.0); Globulin 3.2 g/dL (1.3-3.2); Glucose 99 mg/dl (74-100); Total Protein,Serum 7.9 g/dl (6.3-8.2)
[2025-05-04 10:50] LABS: Bacteria,Urine Trace /lpf; Squamous Epithelial Cell,Urine Occasional #/hpf (0-5); WBC,Urine Occasional #/hpf (0-3)
--- NOTE | 2025-05-04 11:03 | PC.NURSE ---
rounded on pt, updated on poc. no needs at this time. call light within reach
--- NOTE | 2025-05-04 12:23 | PC.NURSE ---
DR DUKE AT BEDSIDE TO UPDATE PT
--- NOTE | 2025-05-04 12:28 | PC.NURSE ---
Dr. Nobles speaking with surgeon auto inspection specialist.
== END 2025-05-04 13:02 | disposition home or self-care (01) ==
PROVIDERS: Emergency Provider Student in an Organized Health Care Education/Training Program
DX: R10.11 Right upper quadrant pain (principal); K80.20 Calculus of gallbladder without cholecystitis without obstruction; R11.2 Nausea with vomiting, unspecified; F17.210 Nicotine dependence, cigarettes, uncomplicated
CPT/HCPCS: 76705; 80053; 81001; 83605; 83690; 84703; 85025; 93005; 96374; 96375; 99285; J2270; J2405

== ENCOUNTER 2025-05-10 09:14 | Day surgery (SDC) | payer BC, SELFPAY ==
[2025-05-10] VITALS (11 sets, daily range): BP systolic 107–154; BP diastolic 72–95; PULSE 65–114; RESP 16–24; TEMP 36.6–37.2; O2SAT 99–100; BMI 22.6
[2025-05-10 09:53] LABS: Urine Pregnancy, HCG Qual. Negative (Negative)
[2025-05-10] MEDS: 0.9 % SODIUM CHLORIDE 1000ML 1,000 ML 25 ML IV (10:00)
[2025-05-10] MEDS: LIDOCAINE 1% 20ML MDV 20 ML (11:09)
[2025-05-10] MEDS: SODIUM CHLORIDE IRRIG SOLUTION 3,000 ML 200 ML IR (11:09)
--- NOTE | 2025-05-10 12:03 | EXP.OP.NOTE ---
Date of procedure: 05/10/25 Pre-op Diagnosis:: Symptomatic cholelithiasis Post-op Diagnosis:: Chronic calculous cholecystitis Procedure performed:: Laparoscopic cholecystectomy Surgeon:: Mulugeta Pitts MD CHIP SILO TENDER:: Orville Cardenas Anesthesia: GETA Estimated blood loss (mL): 15 Operative findings:: Severe pericholecystic fat stranding with adhesions to omentum, small bowel, and stomach Gallbladder wall thickening Severe infundibular thickening Operative note:: After informed consent was obtained, the patient was taken to the operating room and placed in the supine position. General anesthesia was induced and the abdomen was prepped and draped in a sterile fashion. After infiltration with local anesthetic an infraumbilical incision was made. A Veress needle was placed in position. The abdomen was insufflated. A 5 mm optical trocar was placed in position. Under direct visualization, a 12 mm trocar was placed in the subxiphoid position and 2 additional 5 mm trocars were placed in the right upper quadrant. The gallbladder was elevated up and over the liver margin. The tissue around the cystic duct was carefully dissected. 3 clips were placed proximally and the duct was transected with harmonic adela. Harmonic adela were then utilized to dissect the gallbladder away from the liver margin with careful attention to the control of the cystic artery. The gallbladder was placed in a retrieval bag and removed through the subxiphoid trocar site. The right upper quadrant was thoroughly irrigated. No active bleeding or bile leak was noted. Fascia at the subxiphoid trocar site was reapproximated utilizing 0 Ethibond. The remaining trocars were removed. All wounds were irrigated and skin was closed with 4-0 Monocryl in a subcuticular fashion. Steri-Strips were applied. The patient's anesthetic agents were reversed and extubation was completed prior to transfer to recovery in stable condition. Condition: stable Disposition: PACU Specimens:: Gallbladder and contents Complications:: No immediate
[2025-05-10] MEDS: MEPERIDINE 25MG/ML 1ML SYRINGE 25 MG IV (12:27)
--- NOTE | 2025-05-10 12:31 | EXP.ANES.I ---
[facility] Anesthesia Record Part I Anesthesia Record I Intake, IV Amount: 800 Hydration: Adequate Estimated blood loss (mL): 15 Urine output (mL): 0 Blood Products used (#): none Blood Pressure: 154/95 SaO2: 100 Pulse Rate: 114 Airway Patency: Patent Respiratory Rate: 24 Temperature: 98 F Patient is:: Awake and Stable Stable to PACU at:: 12:20 Comments:: Very slow to awaken. Awaken with pain.
[2025-05-10] MEDS: HYDROMORPHONE 2MG/ML SYRINGE 0.5 MG IV ×4 (12:39→12:57)
[2025-05-10] MEDS: MORPHINE 2MG/ML SYRINGE 2 MG IV (13:06)
--- NOTE | 2025-05-11 16:33 | P.PNANES_ITS ---
[facility] Anesthesia Record Part II Anesthesia Record Part II Discharge Time: 13:44 Destination: Surgical Day Care (OP Surgery) PACU nurse assessment reviewed?: Yes Patient Condition:: Good Anesthesia Complications:: None Swallowing reflex intact?: Yes Airway Patency: Patent Cyanosis?: No Blood Pressure: 114/74 SaO2: 100 Respiratory Rate: 15 Pulse Rate: 71 Temperature: 98.4 F Mental Status: Alert & Oriented Pain level:: 3 Nausea and/or vomitting:: None Intake, IV Amount: 0 Hydration: Adequate
[2025-05-11 16:34] VITALS: BP 114/74; PULSE 71; RESP 15; TEMP 36.9; O2SAT 100
== END 2025-05-10 13:44 | disposition home or self-care (01) ==
PROVIDERS: Visit Provider Surgery
PROC: 0FT44ZZ Resection of Gallbladder, Percutaneous Endoscopic Approach (ICD-10-PCS; CPT 47562; principal; 2025-05-10 10:45)
DX: K80.10 Calculus of gallbladder with chronic cholecystitis without obstruction (principal); F17.290 Nicotine dependence, other tobacco product, uncomplicated
CPT/HCPCS: 47562; 81025; 96374; J1171; J2003; J2175; J2250; J2270; J2704; J3010; J7030